=== PATIENT | female | born 1960 | race African-American/Black ===

== ENCOUNTER 2021-12-03 15:36 | Emergency (ER) | payer MEDICAID, OTHER ==
[~2021-12-03] VITALS: Ht 157.5 cm; Wt 75.7 kg
[~2021-12-03 15:36] MED LIST: BENA5TAB5 PO; GABA-534 PO; HYDR200T4 PO; MELO-107 PO; VERA180T11 PO
--- NOTE | 2021-12-03 16:20 | NUR ---
BIBS this 61yo female patient with c/o vaginal bleeding, dysuria, and R flank pain since yesterday. Patient claimed that she was diagnosed with fibroid years ago and it stopped once she hit menopausal. She was concerned that she was bleeding again moderately yesterday with pain in suprapubic area and radiating to the back. Placed in bed. Vitals checked.
--- NOTE | 2021-12-03 16:50 | NUR ---
MAINTENANCE DEPARTMENT MANAGER AT BEDSIDE
[2021-12-03 17:36] LABS: BASOPHILS # (AUTO) 0.1 K/uL (0.0-0.2); BASOPHILS % (AUTO) 0.7 % (0.0-2.0); EOSINOPHILS % (AUTO) 1.7 % (0.0-6.0); HEMATOCRIT 44 % (33-45); HEMOGLOBIN 14.3 g/dL (11.5-14.8); LYMPHOCYTES # (AUTO) 2.7 K/uL (0.8-4.8); LYMPHOCYTES % (AUTO) 25.6 % (20.0-44.0); MEAN CORPUSCULAR HGB CONC 33 g/dl (31.0-36.0); MEAN CORPUSCULAR VOLUME 86 fL (82-100); MONOCYTES # (AUTO) 0.8 K/uL (0.1-1.30); MONOCYTES % (AUTO) 7.1 % (2.0-12.0); NEUTROPHILS # (AUTO) 6.8 K/uL (1.8-8.9); NEUTROPHILS % (AUTO) 64.9 % (43.0-81.0); PLATELET COUNT (AUTO) 277 K/uL (150-450); RED BLOOD CELL COUNT(AUTO) 5.13 MIL/uL (4.0-5.2); WHITE BLOOD COUNT (AUTO) 10.6 K/uL (4.3-11.0)
--- NOTE | 2021-12-03 17:39 | NUR ---
PELVIC JERRY DONE AT BEDSIDE
[2021-12-03 18:05] LABS: CALCIUM, SERUM 9.2 mg/dL (8.5-10.1); CREATININE 0.8 mg/dL (0.6-1.3); POTASSIUM 3.7 mmol/L (3.5-5.1)
[2021-12-03 18:21] LABS: ALBUMIN 3.4 g/dL (3.4-5.0); BILIRUBIN,DIRECT 0.1 mg/dL (0.0-0.2); BILIRUBIN,TOTAL 0.4 mg/dL (0.2-1.0); TOTAL PROTEIN, SERUM 8.4 g/dL (6.4-8.2)
[2021-12-03] MEDS ORDERED: KETOROLAC TROMETHAMINE INJ 30 MG/ML VIAL ONE (19:57)
[2021-12-03] MEDS ORDERED: KETOROLAC TROMETHAMINE INJ 30 MG/ML VIAL IV ONE (20:00)
[2021-12-03] MEDS ORDERED: IOHEXOL-300 100 ML VIAL IV ONE (20:40)
[2021-12-03] MEDS ORDERED: IV NS 0.9% 250 ML IV ONE (20:40)
--- NOTE | 2021-12-03 21:48 | NUR ---
CALLED [facility], THEY ARE WORKING ON THE IMAGE
[2021-12-03] MEDS ORDERED: IBUP-1957 PO (21:57)
--- NOTE | 2021-12-03 22:20 | NUR ---
IV CANNULA REMOVED
--- NOTE | 2021-12-03 22:29 | NUR ---
Patient discharged to home in stable condition. Written and verbal after care instructions given. Patient verbalizes understanding of instruction. IV removed. Catheter intact and site benign. Pressure and 4x4 applied to site. No bleeding noted. PT ambulatory with a steady gait
[2021-12-03 23:00] VITALS: BP 143/79
== END 2021-12-03 23:02 | disposition home or self-care (01) ==
LOC: ER 15:36
DX: N95.0 Postmenopausal bleeding (principal); I10 Essential (primary) hypertension; M06.9 Rheumatoid arthritis, unspecified; F41.9 Anxiety disorder, unspecified; F17.200 Nicotine dependence, unspecified, uncomplicated; Z79.1 Long term (current) use of non-steroidal anti-inflammatories (NSAID); Z79.899 Other long term (current) drug therapy
CPT/HCPCS: 36415; 74177; 76856; 80048; 80076; 85025; 85730; 96374; 99285; J1885; J7050; Q9967